=== PATIENT | male | born 2000 | race Two or more races ===

== ENCOUNTER 2022-10-01 20:37 | Emergency (ER) | payer BC ==
[~2022-10-01] VITALS: Ht 177.8 cm; Wt 92.0 kg
[2022-10-01] MEDS ORDERED: PRED20TA2 PO (23:08)
[2022-10-01] MEDS ORDERED: AMOX-277 PO (23:08)
[2022-10-01] MEDS ORDERED: cefTRIAXone SOD 1,000 MG VL IM ONE (23:15)
[2022-10-01] MEDS ORDERED: methylPREDNISolone SOD SUCC 125 MG/2 ML VL IM ONE (23:15)
[2022-10-01 23:55] VITALS: BP 134/79
== END 2022-10-02 01:22 | disposition home or self-care (01) ==
LOC: ER 20:41
DX: J02.0 Streptococcal pharyngitis (principal)
CPT/HCPCS: 87880; 96372; 99284; J0696; J2930